=== PATIENT | male | born 1980 | race Caucasian/White ===

== ENCOUNTER 2022-06-03 12:28 | Emergency (ER) | payer MEDICAID, OTHER ==
[~2022-06-03] VITALS: Ht 180.3 cm; Wt 99.0 kg
[2022-06-03 13:21] VITALS: BP 120/80
[2022-06-03] MEDS ORDERED: IBUP-2028 MT (16:01)
[2022-06-03] MEDS ORDERED: TOPUD PO (16:01)
[2022-06-03] MEDS ORDERED: IBUPROFEN 400MG TABLET PO ONE (16:15)
[2022-06-03] MEDS ORDERED: ACETAMINOPHEN 325MG TABLET PO ONE (16:15)
== END 2022-06-03 16:13 | disposition home or self-care (01) ==
LOC: ER 12:28
DX: S09.90XA Unspecified injury of head, initial encounter (principal); X58.XXXA Exposure to other specified factors, initial encounter; Y93.89 Activity, other specified; Y92.89 Other specified places as the place of occurrence of the external cause; Y99.8 Other external cause status
CPT/HCPCS: 99284

== ENCOUNTER 2023-07-10 13:54 | Emergency (ER) | payer OTHER ==
[~2023-07-10] VITALS: Ht 180.3 cm; Wt 97.0 kg
[~2023-07-10 13:54] MED LIST: IBUP-2028 MT; TOPUD PO
[2023-07-10 14:16] VITALS: O2SAT 100
[2023-07-10] MEDS: KETOROLAC 30MG/ML VIAL IM ONE (17:30)
[2023-07-10] MEDS ORDERED: IBUP-2030 MT (17:43)
[2023-07-10 18:00] VITALS: BP 125/81; PULSE 69; RESP 19; TEMP 97.7
== END 2023-07-10 18:52 | disposition home or self-care (01) ==
LOC: ER 15:55
DX: R51.9 Headache, unspecified (principal); M54.2 Cervicalgia; M79.671 Pain in right foot; R07.81 Pleurodynia; R07.89 Other chest pain; V49.40XA Driver injured in collision with unspecified motor vehicles in traffic accident, initial encounter; Y93.89 Activity, other specified; Y92.89 Other specified places as the place of occurrence of the external cause; Y99.8 Other external cause status
CPT/HCPCS: 99285; 70450; 71101; 73630; 72125; 96372; J1885